=== PATIENT | female | born 1950 | race Asian ===

== ENCOUNTER 2018-06-30 08:32 | Outpatient (CLI) | payer MEDICARE, BC ==
[2018-06-30] MEDS ORDERED: REGADENOSON 0.4 MG/5 ML DISP.SYRIN IVP ONE (10:30)
== END 2018-06-30 23:59 | disposition home or self-care (01) ==
LOC: NM 08:32
PROVIDERS: ATTEND Internal Medicine Interventional Cardiology
DX: I10 Essential (primary) hypertension (principal)
CPT/HCPCS: 78452; A9502; J2785

== ENCOUNTER 2018-07-13 14:46 | Outpatient (CLI) | payer BC, MEDICARE ==
[2018-07-13 16:24] LABS: BASOPHILS % (AUTO) 0.5 % (0.0-2.0); EOSINOPHILS % (AUTO) 1.7 % (0.0-6.0); HEMATOCRIT 43 % (33-45); HEMOGLOBIN 13.9 g/dL (11.5-14.8); LYMPHOCYTES # (AUTO) 2.1 /CMM (0.8-4.8); LYMPHOCYTES % (AUTO) 37.4 % (20.0-44.0); MEAN CORPUSCULAR HEMOGLOBIN 29 PG (26.0-33.0); MEAN CORPUSCULAR HGB CONC 32 g/dl (31.0-36.0); MEAN CORPUSCULAR VOLUME 89 fL (82-100); MONOCYTES # (AUTO) 0.3 /CMM (0.1-1.30); MONOCYTES % (AUTO) 5.5 % (2.0-12.0); NEUTROPHILS # (AUTO) 3.1 /CMM (1.8-8.9); NEUTROPHILS % (AUTO) 54.9 % (43.0-81.0); PLATELET COUNT (AUTO) 196 /CMM (150-450); RDW COEFFICIENT OF VARIATION 13.6 (11.5-15.0); WHITE BLOOD COUNT (AUTO) 5.6 K/uL (4.3-11.0)
[2018-07-13 16:45] LABS: ALBUMIN 4.1 g/dL (3.4-5.0); BILIRUBIN,TOTAL 0.4 mg/dL (0.2-1.0); CALCIUM, SERUM 9.2 mg/dL (8.5-10.1); CREATININE 0.8 mg/dL (0.6-1.3); MAGNESIUM 2.1 mg/dL (1.8-2.4); POTASSIUM 3.8 mmol/L (3.5-5.1); TOTAL PROTEIN, SERUM 7.9 g/dL (6.4-8.2)
[2018-07-13 16:53] LABS: THYROID STIMULATING HORMONE 2.476 uIU/mL (0.358-3.74)
== END 2018-07-13 23:59 | disposition home or self-care (01) ==
LOC: LAB 14:46
PROVIDERS: ATTEND Internal Medicine Interventional Cardiology
DX: I10 Essential (primary) hypertension (principal); E78.5 Hyperlipidemia, unspecified
CPT/HCPCS: 36415; 80053-TC; 80061-TC; 82306; 83735-TC; 84439-TC; 84443-TC; 85025-TC

== ENCOUNTER 2019-10-28 22:20 | Emergency (ER) | payer MEDICARE, BC ==
[~2019-10-28] VITALS: Ht 172.7 cm; Wt 80.7 kg
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
[2019-10-28] MEDS ORDERED: ALBUTEROL FS 2.5 MG/3 ML VIAL.NEB NEB ONE (23:30)
[2019-10-28] MEDS ORDERED: ALBUTEROL FS 2.5 MG/3 ML VIAL.NEB ONE (23:52)
--- NOTE | 2019-10-29 01:21 | NUR ---
DISCHARGE INSTRUCTIONS GIVEN TO PATIENT. INTRUCTED TO GO BACK TO ER OR CALL 911 FOR WORSENING CONDITION. VERBALIZED UNDERSTANDING. DISCHARGE PAPER SIGNED BY THE PATIENT. AMBULATORY. LEAVED THE FACILITY AT THIS TIME WITH THE .
[2019-10-29 01:25] VITALS: BP 151/84
== END 2019-10-29 01:26 | disposition home or self-care (01) ==
LOC: ER 22:23
DX: J06.9 Acute upper respiratory infection, unspecified (principal); J45.909 Unspecified asthma, uncomplicated; Z88.0 Allergy status to penicillin
CPT/HCPCS: 71046

== ENCOUNTER 2020-07-07 10:50 | Emergency (ER) | payer MEDICARE, BC ==
[~2020-07-07] VITALS: Ht 172.7 cm; Wt 81.6 kg
--- NOTE | 2020-07-07 11:00 | NUR ---
c/o sob, sorethroat, cough x 4 days 96% on RA. PT AAOX4, VSS. RR EVEN & UNLABORED. DENIES CP, DIZZINESS, N/V AT THIS TIME. AWAITING EVAL BY SOURAV. WILL CONT TO MONITOR.
[2020-07-07] MEDS ORDERED: ALBUTEROL FS 2.5 MG/3 ML VIAL.NEB NEB ONE (11:30)
[2020-07-07] MEDS ORDERED: IPRATROPIUM NEB FS 0.5 MG/2.5 ML AMPUL.NEB NEB ONE (11:30)
[2020-07-07] MEDS ORDERED: IPRATROPIUM NEB FS 0.5 MG/2.5 ML AMPUL.NEB ONE (11:55)
[2020-07-07] MEDS ORDERED: ALBUTEROL FS 2.5 MG/3 ML VIAL.NEB ONE (11:55)
--- NOTE | 2020-07-07 12:00 | NUR ---
RESPIRATORY THERAPIST @ BS FOR BREATHING TX. PT CEASAR WELL.
--- NOTE | 2020-07-07 12:26 | NUR ---
Patient discharged to home in stable condition. Written and verbal after care instructions given. Patient verbalizes understanding of instruction.
[2020-07-07 12:27] VITALS: BP 127/84
== END 2020-07-07 12:27 | disposition home or self-care (01) ==
LOC: ER 11:03
DX: J45.909 Unspecified asthma, uncomplicated (principal); Z88.0 Allergy status to penicillin
CPT/HCPCS: 71045-TC

== ENCOUNTER 2020-10-07 22:22 | Emergency (ER) | payer MEDICARE, BC ==
[~2020-10-07] VITALS: Ht 172.7 cm; Wt 83.9 kg
--- NOTE | 2020-10-07 22:22 | NUR ---
C/O FEVER, COUGH WITH SOB X3 DAYS. PT AAOX4, PLACED ON MONITOR, SAT 99% ra. VSS, NAD, PENDING ER PROVIDER KERI
--- NOTE | 2020-10-08 01:02 | NUR ---
Patient discharged to home in stable condition. Written and verbal after care instructions given. Patient verbalizes understanding of instruction.
[2020-10-08 01:07] VITALS: BP 130/75
== END 2020-10-08 01:07 | disposition home or self-care (01) ==
LOC: ER 22:28
DX: R05 Cough (principal); Z20.828 Contact with and (suspected) exposure to other viral communicable diseases; J45.909 Unspecified asthma, uncomplicated; Z88.0 Allergy status to penicillin
CPT/HCPCS: 71045-TC; C9803

== ENCOUNTER 2022-07-10 10:44 | Outpatient (CLI) | payer MEDICARE, BC ==
[2022-07-10 12:01] LABS: BASOPHILS % (AUTO) 0.4 % (0.0-2.0); EOSINOPHILS % (AUTO) 0.7 % (0.0-6.0); HEMATOCRIT 42 % (33-45); HEMOGLOBIN 13.8 g/dL (11.5-14.8); LYMPHOCYTES # (AUTO) 1.7 K/uL (0.8-4.8); MEAN CORPUSCULAR HGB CONC 33 g/dl (31.0-36.0); MEAN CORPUSCULAR VOLUME 88 fL (82-100); MONOCYTES # (AUTO) 0.3 K/uL (0.1-1.30); MONOCYTES % (AUTO) 4.4 % (2.0-12.0); NEUTROPHILS # (AUTO) 4.5 K/uL (1.8-8.9); NEUTROPHILS % (AUTO) 68.5 % (43.0-81.0); PLATELET COUNT (AUTO) 176 K/uL (150-450); RED BLOOD CELL COUNT(AUTO) 4.78 MIL/uL (4.0-5.2); WHITE BLOOD COUNT (AUTO) 6.6 K/uL (4.3-11.0)
[2022-07-10 12:49] LABS: BILIRUBIN,TOTAL 0.8 mg/dL (0.2-1.0); CALCIUM, SERUM 8.9 mg/dL (8.5-10.1); CREATININE 0.7 mg/dL (0.6-1.3); POTASSIUM 4.1 mmol/L (3.5-5.1); TOTAL PROTEIN, SERUM 7.6 g/dL (6.4-8.2)
[2022-07-13 08:51] LABS: FREE T4 (FREE THYROXINE) 1.2 ng/dL (0.76-1.46); THYROID STIMULATING HORMONE 1.19 uIU/mL (0.358-3.74)
== END 2022-07-10 23:59 | disposition home or self-care (01) ==
LOC: LAB 10:44
PROVIDERS: ATTEND Internal Medicine Interventional Cardiology
DX: E04.1 Nontoxic single thyroid nodule (principal); I10 Essential (primary) hypertension; E78.5 Hyperlipidemia, unspecified; E03.9 Hypothyroidism, unspecified; E55.9 Vitamin D deficiency, unspecified; R53.83 Other fatigue
CPT/HCPCS: 36415; 76536-TC; 80053-TC; 80061-TC; 82306; 84439-TC; 84443-TC; 85025-TC

== ENCOUNTER 2022-11-25 18:30 | Emergency (ER) | payer MEDICARE, BC ==
[~2022-11-25] VITALS: Ht 172.7 cm; Wt 73.0 kg
[2022-11-25 18:43] VITALS: BP 107/80
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
--- NOTE | 2022-11-25 19:16 | NUR ---
CRYSTAL MOUNTER AT PT'S BEDSIDE
--- NOTE | 2022-11-25 19:21 | NUR ---
PT REFUSED HEAD CT PROCEDURE PER CLINICAL NURSING PROFESSOR. Addendum: 11/25/[address] sullivan made aware of pt's refusal
--- NOTE | 2022-11-25 19:30 | NUR ---
covid swab collected and sent to lab
[2022-11-25 19:55] LABS: ALANINE AMINOTRANSFERASE 17 U/L (12-78); ALBUMIN 3.5 g/dL (3.4-5.0); ALKALINE PHOSPHATASE 63 U/L (46-116); ASPARTATE AMINOTRANSFERASE 18 U/L (15-37); BILIRUBIN,DIRECT 0.2 mg/dL (0.0-0.2); BILIRUBIN,TOTAL 0.7 mg/dL (0.2-1.0); CALCIUM, SERUM 9.5 mg/dL (8.5-10.1); CARBON DIOXIDE 28 mmol/L (21-32); CHLORIDE 105 mmol/L (98-107); CREATININE 0.8 mg/dL (0.6-1.3); GLUCOSE 130 mg/dL (74-106); POTASSIUM 3.5 mmol/L (3.5-5.1); SODIUM SERUM 140 mmol/L (136-145); TOTAL PROTEIN, SERUM 6.6 g/dL (6.4-8.2); UREA NITROGEN, BLOOD 17 mg/dL (7-18)
[2022-11-25 20:31] LABS: BASOPHILS % (AUTO) 0.3 % (0.0-2.0); EOSINOPHILS % (AUTO) 0.9 % (0.0-6.0); HEMATOCRIT 39 % (33-45); HEMOGLOBIN 12.4 g/dL (11.5-14.8); LYMPHOCYTES # (AUTO) 2.4 K/uL (0.8-4.8); LYMPHOCYTES % (AUTO) 30.9 % (20.0-44.0); MEAN CORPUSCULAR HGB CONC 32 g/dl (31.0-36.0); MEAN CORPUSCULAR VOLUME 90 fL (82-100); MONOCYTES # (AUTO) 0.4 K/uL (0.1-1.30); MONOCYTES % (AUTO) 4.9 % (2.0-12.0); NEUTROPHILS # (AUTO) 4.9 K/uL (1.8-8.9); PLATELET COUNT (AUTO) 165 K/uL (150-450); RED BLOOD CELL COUNT(AUTO) 4.29 MIL/uL (4.0-5.2); WHITE BLOOD COUNT (AUTO) 7.8 K/uL (4.3-11.0)
--- NOTE | 2022-11-25 20:37 | NUR ---
Patient does not wish to proceed with medical care recommended by Dr. MCGRAW. Patient given information related to possible complications, up to and including , which could occur as a result of leaving the hospital at this time. Patient verbalizes understanding of risks involved due to leaving against medical advice. Patient has signed AMA form. IV removed. Catheter intact and site benign. Pressure and 4x4 applied to site. No bleeding noted.
[2022-11-25 22:28] LABS: BILIRUBIN,URINE 1+ (NEGATIVE); COLOR,URINE YELLOW (YELLOW); LEUKOCYTE ESTERASE ,URINE NEGATIVE (NEGATIVE); NITRITE, URINE NEGATIVE (NEGATIVE); PROTEIN,URINE 1+ mg/dl (NEGATIVE); UGLUCOSE NEGATIVE (NEGATIVE)
[2022-11-25 22:35] LABS: BACTERIA,URINE RARE /HPF (None Seen); RBC,URINE 0-2 /HPF (0-2); URIC ACID CRYSTALS,URINE Few /HPF (None Seen); WBC,URINE 0-2 /HPF (0-3)
[2022-11-25 22:36] LABS: CALCIUM OXALATE CRYSTALS,UR Few /HPF (None Seen); MUCUS,URINE Moderate /LPF (None Seen)
[2022-11-25 23:41] LABS: MAGNESIUM 2.1 mg/dL (1.8-2.4)
== END 2022-11-25 21:02 | disposition left against medical advice (07) ==
LOC: ER 18:37
DX: R55 Syncope and collapse (principal); R00.1 Bradycardia, unspecified; I44.0 Atrioventricular block, first degree; J45.909 Unspecified asthma, uncomplicated; Z88.0 Allergy status to penicillin; I10 Essential (primary) hypertension; S09.90XA Unspecified injury of head, initial encounter; V49.9XXA Car occupant (driver) (passenger) injured in unspecified traffic accident, initial encounter; Y92.410 Unspecified street and highway as the place of occurrence of the external cause
CPT/HCPCS: 36415; 71045-TC; 80048-TC; 80076-TC; 81001; 82550-TC; 82962-TC; 83735-TC; 84484-TC; 85025-TC; 87081-TC; 87086-TC; C9803

== ENCOUNTER 2023-07-10 01:04 | Emergency (ER) | payer MEDICARE, BC ==
[~2023-07-10] VITALS: Ht 172.7 cm; Wt 67.6 kg
[2023-07-10 01:41] VITALS: BP 131/73; TEMP 98.3
[2023-07-10] MEDS ORDERED: KETO15CR2 TP (03:13)
[2023-07-10] MEDS ORDERED: HYDR28OI2 TP (03:13)
[2023-07-10 04:12] LABS: APPEARANCE,URINE CLEAR (CLEAR); BILIRUBIN,URINE NEGATIVE (NEGATIVE); BLOOD, URINE TRACE-INTA Ery/uL (NEGATIVE); COLOR,URINE YELLOW (YELLOW); KETONES,URINE NEGATIVE (NEGATIVE); LEUKOCYTE ESTERASE ,URINE NEGATIVE (NEGATIVE); NITRITE, URINE NEGATIVE (NEGATIVE); PH,URINE 6.5 (5.0-8.0); PROTEIN,URINE NEGATIVE (NEGATIVE); UGLUCOSE NEGATIVE (NEGATIVE); UROBILINOGEN,URINE 0.2 EU/dL (0.2)
[2023-07-10 05:15] VITALS: O2SAT 95
== END 2023-07-10 05:19 | disposition home or self-care (01) ==
LOC: ER 01:05
DX: B35.4 Tinea corporis (principal); I10 Essential (primary) hypertension; J45.909 Unspecified asthma, uncomplicated; Z79.899 Other long term (current) drug therapy; Z88.5 Allergy status to narcotic agent

== ENCOUNTER 2024-10-28 08:38 | Emergency (ER) | payer MEDICARE, BC ==
[~2024-10-28] VITALS: Ht 172.7 cm; Wt 61.2 kg
[~2024-10-28 08:38] MED LIST: HYDR28OI2 TP; KETO15CR2 TP
[2024-10-28 10:23] VITALS: BP 137/78; TEMP 98; O2SAT 97
== END 2024-10-28 10:23 | disposition home or self-care (01) ==
LOC: ER 08:38
DX: R05.8 Other specified cough (principal); R09.81 Nasal congestion; R51.9 Headache, unspecified; J34.89 Other specified disorders of nose and nasal sinuses; J45.909 Unspecified asthma, uncomplicated; Z88.5 Allergy status to narcotic agent; Z20.822 Contact with and (suspected) exposure to COVID-19
CPT/HCPCS: 71045-TC